=== PATIENT | male | born 1980 | race Caucasian/White ===

== ENCOUNTER 2023-09-25 00:49 | Inpatient (IN) | payer OTHER ==
[~2023-09-25] VITALS: Ht 167.6 cm; Wt 86.2 kg
[2023-09-25 01:21] VITALS: BP 125/71; PULSE 69; RESP 18; TEMP 97.6; O2SAT 98
[2023-09-25] MEDS ORDERED: DICYCLOMINE HCL LIQUID 10 MG/5 ML UDC ONE (01:41)
[2023-09-25] MEDS ORDERED: ALUMINUM HYD/MAG/SIMETHICONE 30 ML UDC ONE (01:41)
[2023-09-25] MEDS: DICYCLOMINE HCL LIQUID 20 MG, ALUMINUM HYD/MAG/SIMETHICONE 30 ML, LIDOCAINE VISCOUS 2% ... PO ONE (01:44)
[2023-09-25] MEDS: HYDROcodone/APAP 5/325 MG 1 TAB TAB PO ONE (01:46)
[2023-09-25 01:52] LABS: BASOPHILS % (AUTO) 0.3 % (0.0-2.0); EOSINOPHILS % (AUTO) 0.1 % (0.0-4.0); HEMATOCRIT 42.6 % (36-52); HEMOGLOBIN 14.6 g/dL (12.0-18.0); LYMPHOCYTES # (AUTO) 0.6 K/uL (2.0-11.5); LYMPHOCYTES % (AUTO) 5.7 % (20.5-51.1); MEAN CORPUSCULAR HEMOGLOBIN 32 pg (27-31); MEAN CORPUSCULAR HGB CONC 34 g/dL (33-37); MEAN CORPUSCULAR VOLUME 92.9 fL (80-94); MONOCYTES # (AUTO) 0.5 K/uL (0.8-1.0); MONOCYTES % (AUTO) 4.7 % (1.7-9.3); NEUTROPHILS # (AUTO) 9.6 K/uL (1.8-7.7); NEUTROPHILS % (AUTO) 89.2 % (42.2-75.2); PLATELET COUNT (AUTO) 336 K/uL (140-450); RED BLOOD CELL COUNT(AUTO) 4.58 MIL/uL (4.20-6.10); WHITE BLOOD COUNT (AUTO) 10.8 K/uL (4.8-10.8)
[2023-09-25 02:12] LABS: ALANINE AMINOTRANSFERASE 387 U/L (12-78); ALBUMIN 3.8 g/dL (3.4-5.0); ALKALINE PHOSPHATASE 150 U/L (50-136); ANION GAP 12.1 (8-16); ASPARTATE AMINOTRANSFERASE 436 U/L (15-37); CALCIUM 8.2 mg/dL (8.5-10.1); CARBON DIOXIDE 27.8 mmol/L (21-32); CHLORIDE 102 mmol/L (98-107); CREATININE 0.9 mg/dL (0.6-1.3); GFR ARICAN-AMERICAN 118 mL/min (>90); GFR NON ARICAN-AMERICAN 97 mL/min (>90); GLUCOSE 150 mg/dL (74-106); LIPASE 52 U/L (16-77); POTASSIUM 3.9 mmol/L (3.5-5.1); SODIUM SERUM 138 mmol/L (136-145); TOTAL BILIRUBIN 1.3 mg/dL (0.0-1.0); TOTAL PROTEIN, SERUM 7.5 g/dL (6.4-8.2); UREA NITROGEN, BLOOD 16 mg/dL (7-18)
[2023-09-25] MEDS: MORPHINE SULFATE 4 MG/ML SYR IVP ONE (04:26)
[2023-09-25] MEDS: ONDANSETRON 4 MG/2 ML VIAL IVP ONE (04:28)
[2023-09-25] MEDS: NACL 0.9% 1,000 ML IV ONE ×2 (04:31→07:00)
[2023-09-25 07:08] LABS: BASOPHILS % (AUTO) 0.4 % (0.0-2.0); EOSINOPHILS % (AUTO) 0.2 % (0.0-4.0); HEMATOCRIT 42.3 % (36-52); HEMOGLOBIN 14.2 g/dL (12.0-18.0); LYMPHOCYTES % (AUTO) 10.1 % (20.5-51.1); MEAN CORPUSCULAR HEMOGLOBIN 32 pg (27-31); MEAN CORPUSCULAR HGB CONC 33 g/dL (33-37); MEAN CORPUSCULAR VOLUME 94.1 fL (80-94); MONOCYTES # (AUTO) 0.8 K/uL (0.8-1.0); MONOCYTES % (AUTO) 8.9 % (1.7-9.3); NEUTROPHILS # (AUTO) 7.7 K/uL (1.8-7.7); NEUTROPHILS % (AUTO) 80.4 % (42.2-75.2); PLATELET COUNT (AUTO) 297 K/uL (140-450); RED CELL DISTRIBUTION WIDTH 12.9 % (11.6-13.7); WHITE BLOOD COUNT (AUTO) 9.5 K/uL (4.8-10.8)
[2023-09-25 07:26] LABS: ALBUMIN 3.4 g/dL (3.4-5.0); ANION GAP 12.7 (8-16); CALCIUM 7.7 mg/dL (8.5-10.1); CARBON DIOXIDE 25.9 mmol/L (21-32); CREATININE 0.8 mg/dL (0.6-1.3); POTASSIUM 3.6 mmol/L (3.5-5.1); TOTAL BILIRUBIN 1.8 mg/dL (0.0-1.0); TOTAL PROTEIN, SERUM 6.9 g/dL (6.4-8.2)
[2023-09-25 08:20] VITALS: PULSE 64; RESP 18; O2SAT 98
[2023-09-25] MEDS ORDERED: ZOLPIDEM 5 MG TAB PO PRN (08:50)
[2023-09-25] MEDS ORDERED: LORazepam 1 MG TAB PO PRN (08:50)
[2023-09-25] MEDS ORDERED: ONDANSETRON 4 MG/2 ML VIAL IVP PRN (08:50)
[2023-09-25] MEDS ORDERED: HYDROcodone/APAP 5/325 MG 1 TAB TAB PO PRN (08:50)
[2023-09-25] MEDS: PANTOPRAZOLE 40 MG INJ VIAL IVP SCH (10:20)
[2023-09-25] MEDS: DOCUSATE SODIUM 100 MG GELCAP PO SCH (10:20)
[2023-09-25 12:00] VITALS: BP 120/78; PULSE 64; RESP 18; TEMP 96.2; O2SAT 98
[2023-09-25 16:00] VITALS: BP 125/75; PULSE 68; RESP 18; TEMP 98; O2SAT 97
[2023-09-25 20:00] VITALS: PULSE 70; RESP 18; O2SAT 97
[2023-09-26] VITALS: BP 125/65; PULSE 70; RESP 18; TEMP 98.3; O2SAT 98
[2023-09-26 06:35] LABS: BASOPHILS % (AUTO) 0.5 % (0.0-2.0); EOSINOPHILS # (AUTO) 0.2 K/uL (0-0.4); EOSINOPHILS % (AUTO) 2.7 % (0.0-4.0); HEMATOCRIT 42.6 % (36-52); HEMOGLOBIN 14.9 g/dL (12.0-18.0); LYMPHOCYTES # (AUTO) 0.8 K/uL (2.0-11.5); LYMPHOCYTES % (AUTO) 10.2 % (20.5-51.1); MEAN CORPUSCULAR HEMOGLOBIN 33 pg (27-31); MEAN CORPUSCULAR HGB CONC 35 g/dL (33-37); MONOCYTES # (AUTO) 0.7 K/uL (0.8-1.0); MONOCYTES % (AUTO) 9.1 % (1.7-9.3); NEUTROPHILS % (AUTO) 77.5 % (42.2-75.2); PLATELET COUNT (AUTO) 301 K/uL (140-450); RED BLOOD CELL COUNT(AUTO) 4.54 MIL/uL (4.20-6.10); RED CELL DISTRIBUTION WIDTH 13.2 % (11.6-13.7); WHITE BLOOD COUNT (AUTO) 7.8 K/uL (4.8-10.8)
[2023-09-26 07:08] LABS: ALBUMIN 3.4 g/dL (3.4-5.0); ANION GAP 11.6 (8-16); CALCIUM 8.3 mg/dL (8.5-10.1); CARBON DIOXIDE 28.1 mmol/L (21-32); CREATININE 0.9 mg/dL (0.6-1.3); POTASSIUM 3.7 mmol/L (3.5-5.1); TOTAL BILIRUBIN 4.7 mg/dL (0.0-1.0); TOTAL PROTEIN, SERUM 7.1 g/dL (6.4-8.2)
[2023-09-26 08:00] VITALS: PULSE 67; RESP 18; O2SAT 96
[2023-09-26] MEDS: MIDAZOLAM 2 MG/2 ML VIAL ONE (11:06)
[2023-09-26] MEDS: fentaNYL citrate 0.05 MG/ML VIAL ONE (11:07)
[2023-09-26] MEDS: PROPOFOL 200 MG/20 ML VIAL IV ONE (11:46)
[2023-09-26] MEDS: ONDANSETRON 4 MG/2 ML VIAL ONE (11:47)
[2023-09-26] MEDS: KETOROLAC 30 MG/ML VIAL ONE (11:47)
[2023-09-26] MEDS: SUCCINYLCHOLINE CHLORIDE 200 MG/10 ML VIAL IVP ONE (11:47)
[2023-09-26] MEDS: ROCURONIUM 50 MG/5 ML VIAL IV ONE (11:47)
[2023-09-26] MEDS: METOCLOPRAMIDE 10 MG/2 ML INJ VIAL ONE (11:47)
[2023-09-26] MEDS: BUPIVACAINE-MPF 0.25% 30 ML VIAL INJ ONE (11:59)
[2023-09-26] MEDS: DEXAMETHASONE 4 MG/ML VIAL ONE (11:59)
[2023-09-26] MEDS: LIDOCAINE/EPI 1% 1:100000 20 ML VIAL INJ ONE (11:59)
[2023-09-26] MEDS: ceFAZolin 2,000 MG VIAL ONE (11:59)
[2023-09-26] MEDS: SUGAMMADEX SODIUM 200 MG/2 ML VIAL IV ONE (12:21)
[2023-09-26] MEDS ORDERED: ONDANSETRON 4 MG/2 ML VIAL IVP PRN (12:45)
[2023-09-26] MEDS ORDERED: HYDROmorphone 1 MG/ML AMP IVP PRN (12:45)
[2023-09-26] MEDS ORDERED: MEPERIDINE 25 MG/ML SYR IVP PRN (12:45)
[2023-09-26] MEDS ORDERED: diphenhydrAMINE 50 MG/ML VIAL IVP PRN (12:45)
[2023-09-26] MEDS: LACTATED RINGERS 1,000 ML IV SCH (12:45)
[2023-09-26] MEDS: HYDROmorphone 1 MG/ML AMP IVP PRN (13:00)
[2023-09-26] MEDS: HYDROmorphone PFS 2 MG/ML SYR ONE ×2 (13:12)
[2023-09-26 17:25] VITALS: BP 134/72; PULSE 67; RESP 18; TEMP 98.3; O2SAT 96
[2023-09-26] MEDS ORDERED: IBUP-2213 PO (18:35)
[2023-09-26 18:43] VITALS: BP 139/84; PULSE 81; RESP 18; TEMP 98.6
== END 2023-09-26 19:11 | disposition home or self-care (01) | DRG 419 ==
LOC: MED 00:49 → MMU 04:46
PROVIDERS: ADMIT Student in an Organized Health Care Education/Training Program; ATTEND Student in an Organized Health Care Education/Training Program
PROC: BF121ZZ Fluoroscopy of Gallbladder using Low Osmolar Contrast (ICD-10-PCS; 2023-09-26)
PROC: 0FT44ZZ Resection of Gallbladder, Percutaneous Endoscopic Approach (ICD-10-PCS; principal; 2023-09-26 11:30)
DX: K80.42 Calculus of bile duct with acute cholecystitis without obstruction (principal); H91.93 Unspecified hearing loss, bilateral
CPT/HCPCS: 36415; 76705; 80053; 83690; 84484; 85025; 87081; 93005; C1758; C9113; J0330; J1100; J1170; J1885; J2001; J2250; J2270; J2405; J2704; J2765; J3010; J3490; J7030; J7120; Q0092